=== PATIENT | male | born 1955 | race Caucasian/White ===

== ENCOUNTER 2017-06-24 07:07 | Outpatient (CLI) | payer MEDICARE ==
[~2017-06-24 07:07] MED LIST: AMOXICILLIN500 M1 PO; BUMEX2 MG PO; BUTALB-APAP-CA1 EACH PO; CLEOCIN HCL150 MG PO; COREG25 MG PO; COZAAR50 MG PO; FORTAMET1000 MG/BO PO; GLUCOPHAGE500 MG PO; LASIX20 MG PO; ZITHROMAX500 MG PO
[2017-06-24] MEDS ORDERED: HYDROCODON-ACE1 EAC7 PO (07:41)
[2017-06-24] MEDS ORDERED: TRADJENTA5 MG PO (07:41)
[2017-06-24] MEDS ORDERED: GLUCOTROL 5 MG T5 MG PO (07:41)
[2017-06-24 07:51] VITALS: BP 122/80; BMI 35.2
[2017-06-24 07:52] LABS: ANION GAP 14.4 mmol/L (8-16); CALCIUM 9.5 mg/dL (8.5-10.1); CREATININE - SERUM 1.2 mg/dL (0.6-1.3); POTASSIUM - SERUM 3.6 mmol/L (3.5-5.1)
--- NOTE | 2017-06-24 07:56 | NUR ---
0755 IV HAS BEEN STARTED X 1 STICK WTIH 22 G TO LEFT WRIST, LAB DRAWN. IV BUMEX STARTED AND INFUSING AT 10 ML PER HOUR VIA PUMP. DOBUTAMINE STARTED AND INFUSING AT 18.2 ML/HR VIA PUMP. DIET TRAY ORDERED. AT BEDSIDE. URINALS X 2 PROVIDED. INITIAL TELEMETRY STRIP PRINTED. CALL LIGHT IN REACH.
--- NOTE | 2017-06-24 08:00 | NUR ---
0800 2 GM SODIUM DIET TRAY SERVED. PT DENIES ANY C/O.
[2017-06-24 08:01] LABS: CARBON DIOXIDE 25.2 mmol/L (21.0-32.0)
--- NOTE | 2017-06-24 11:03 | NUR ---
0945 PT LAPHONSO 2 GM SODIUM DIET DIET WITH NO C/O. VOIDED 1300 CC CLEAR YELLOW URINE TO URINAL.
--- NOTE | 2017-06-24 12:45 | NUR ---
2GM NA DIET TRAY GIVEN. FEEDING SELF. DENIES ANY NEEDS AT THIS TIME.
--- NOTE | 2017-06-24 13:30 | NUR ---
VOIDED 1300CC OF CLEAR YELLOW URINE INTO URINAL.
--- NOTE | 2017-06-24 15:45 | NUR ---
INFUSIONS COMPLETE. VSS. WILL CONTINUE TO MONITOR.
--- NOTE | 2017-06-24 16:10 | NUR ---
LEFT HAND PIV D/C'D WITH CATHETER INTACT, BAND AID TO SITE. UP TO BEDSIDE TO GET DRESSED.
--- NOTE | 2017-06-24 16:15 | NUR ---
VOIDED 1400CC OF CLEAR YELLOW URINE.
--- NOTE | 2017-06-24 16:18 | NUR ---
TAKEN OUT VIA WHEELCHAIR BY CATH R AND D LAB TECHNICIAN. LEFT FACILITY WITH FAMILY MEMBER AND ALL PERSONAL BELONGINGS.
--- NOTE | 2017-06-24 16:18 | NUR ---
DISCHARGE WEIGHT 262.0 LBS. VOIDED TOTAL OF 4000CC OF URINE.
== END 2017-06-24 16:18 | disposition home or self-care (01) ==
LOC: D.CATH 07:07
PROVIDERS: Internal Medicine Cardiovascular Disease
DX: I50.9 Heart failure, unspecified (principal); I42.9 Cardiomyopathy, unspecified

== ENCOUNTER 2017-11-12 09:43 | Outpatient (CLI) | payer MEDICARE ==
[~2017-11-12] VITALS: Ht 185.4 cm; Wt 122.2 kg
[~2017-11-12 09:43] MED LIST changes: +GLUCOTROL 5 MG T5 MG PO; +HYDROCODON-ACE1 EAC7 PO; +TRADJENTA5 MG PO
[2017-11-12 10:23] VITALS: BP 134/77; Ht 185.4 cm; Wt 122.2 kg
[2017-11-12 10:52] LABS: ANION GAP 15.8 mmol/L (8-16); CARBON DIOXIDE 29.2 mmol/L (21.0-32.0); CREATININE - SERUM 1.4 mg/dL (0.6-1.3)
== END 2017-11-12 19:00 | disposition home or self-care (01) ==
LOC: D.OPS 09:43 → D.CATH 10:00 → D.OPS 19:00
PROVIDERS: Internal Medicine Interventional Cardiology
DX: I50.9 Heart failure, unspecified (principal); I42.9 Cardiomyopathy, unspecified

== ENCOUNTER 2018-04-09 09:06 | Outpatient (CLI) | payer MEDICARE ==
[~2018-04-09] VITALS: Ht 185.4 cm; Wt 124.3 kg
[2018-04-09 11:27] LABS: BASOPHILS 1.5 % (0-2); EOSINOPHILS 0.6 % (0-7); HEMATOCRIT 43.1 % (42.0-54.0); HEMOGLOBIN 14.1 g/dL (13.5-17.5); LYMPHOCYTES 15.8 % (15-50); MCH 29.2 pg (26.0-34.0); MCHC 32.7 g/dL (31.0-37.0); MCV 89.2 fL (80.0-100.0); MEAN PLATELET VOLUME 11.1 fL (7.4-10.4); MONOCYTES 11.9 % (2-11); NEUTROPHILS 70.2 % (40-80); PLATELET COUNT 118 10x3/uL (130-400); RBC 4.83 10x6/uL (4.20-6.10); RDW 15.2 % (11.5-14.5); WBC 3.4 10x3/uL (4.8-10.8)
[2018-04-09 11:38] LABS: ANION GAP 10.8 mmol/L (8-16); CARBON DIOXIDE 30.9 mmol/L (21.0-32.0); CREATININE - SERUM 1.3 mg/dL (0.6-1.3); POTASSIUM - SERUM 3.7 mmol/L (3.5-5.1)
[2018-04-09 12:46] VITALS: BP 126/79; Ht 185.4 cm; Wt 124.3 kg
[2018-04-09 20:19] VITALS: BP 130/83
== END 2018-04-09 20:45 | disposition home or self-care (01) ==
LOC: D.OPS 09:06 → D.M2 19:32 → D.OPS 20:45
PROVIDERS: Internal Medicine Interventional Cardiology
DX: I50.9 Heart failure, unspecified (principal); I42.9 Cardiomyopathy, unspecified; Z01.812 Encounter for preprocedural laboratory examination

== ENCOUNTER 2018-06-25 09:26 | Outpatient (CLI) | payer MEDICARE ==
[~2018-06-25] VITALS: Ht 185.4 cm; Wt 121.5 kg
[2018-06-25 10:05] LABS: ANION GAP 14.6 mmol/L (8-16); CARBON DIOXIDE 25.3 mmol/L (21.0-32.0); CREATININE - SERUM 1.4 mg/dL (0.6-1.3); POTASSIUM - SERUM 3.9 mmol/L (3.5-5.1)
[2018-06-25 10:52] VITALS: BP 112/64; Ht 185.4 cm; Wt 121.5 kg
== END 2018-06-25 20:00 | disposition home or self-care (01) ==
LOC: D.OPS 09:26
PROVIDERS: Internal Medicine Interventional Cardiology
DX: I50.9 Heart failure, unspecified (principal); I42.9 Cardiomyopathy, unspecified; Z01.812 Encounter for preprocedural laboratory examination

== ENCOUNTER 2018-08-08 07:18 | Outpatient (CLI) | payer MEDICARE ==
[~2018-08-08] VITALS: Ht 185.4 cm; Wt 124.1 kg
[2018-08-08 10:19] VITALS: BP 103/57; Ht 185.4 cm; Wt 124.1 kg
[2018-08-08 12:33] LABS: ALBUMIN 3.9 g/dL (3.4-5.0); ANION GAP 17.5 mmol/L (8-16); BILIRUBIN - TOTAL 2.2 mg/dL (0.2-1.3); CALCIUM 9.3 mg/dL (8.5-10.1); CARBON DIOXIDE 24.3 mmol/L (21.0-32.0); CREATININE - SERUM 1.7 mg/dL (0.6-1.3); MAGNESIUM - SERUM 2.1 mg/dL (1.8-2.4); POTASSIUM - SERUM 3.8 mmol/L (3.5-5.1); PROTEIN - SERUM 7.6 g/dL (6.4-8.2)
== END 2018-08-08 18:25 | disposition home or self-care (01) ==
LOC: D.OPS 07:18
PROVIDERS: Internal Medicine Interventional Cardiology
DX: I50.9 Heart failure, unspecified (principal); I42.9 Cardiomyopathy, unspecified; Z01.812 Encounter for preprocedural laboratory examination

== ENCOUNTER → 2018-08-13 09:20 | Outpatient (CLI) | payer MEDICARE ==
[2018-08-08 10:19] VITALS: BMI 36.1
== END | disposition home or self-care (01) ==
LOC: D.CT 09:20
DX: D35.01 Benign neoplasm of right adrenal gland (principal)

== ENCOUNTER 2018-09-10 07:36 | Outpatient (CLI) | payer MEDICARE ==
[~2018-09-10] VITALS: Ht 185.4 cm; Wt 125.5 kg
[2018-09-10 08:26] VITALS: BP 104/72; Ht 185.4 cm; Wt 125.5 kg
[2018-09-10 08:26] LABS: ANION GAP 15.3 mmol/L (8-16); CARBON DIOXIDE 25.7 mmol/L (21.0-32.0); CREATININE - SERUM 1.5 mg/dL (0.6-1.3)
--- NOTE | 2018-09-10 11:18 | NUR ---
PT RESTING COMFORTABLY AT THIS TIME, PLAN OF CARE EXPLAINED, PT VERBALIZED UNDERSTANDING, NO ACUTE DISTRESS NOTED, WILL CONTINUE TO MONITOR.
--- NOTE | 2018-09-10 14:00 | NUR ---
ASSUMED CARE OF PATIENT. SITTING ON SIDE OF BED. DENIES NEEDS. RELATES THEY ARE SUPPOSE TO BE GETTING ME SOMETHING TO EAT. CHECKED AND PT HAD A HAMURGER ON FOOD CART. BROUGHT TO PATIENT BUT DID NOT HAVE SET UP FOR BURGER. NUTRITION CALLED AND ORDERED SET FOR MEAL.
--- NOTE | 2018-09-10 14:30 | NUR ---
SET UP FOR NORMA BROUGHT UP BY DIETARY. TAKEN TO PT. NO C/O VOICED.
--- NOTE | 2018-09-10 14:38 | NUR ---
REPORTED OFF TO Nickolas WEAVER RN.
--- NOTE | 2018-09-10 17:58 | NUR ---
WEIGHT PRIOR TO INFUSION 273 POST WEIGHT 269.4
== END 2018-09-10 17:45 | disposition home or self-care (01) ==
LOC: D.OPS 07:36
PROVIDERS: Internal Medicine Interventional Cardiology
DX: I50.9 Heart failure, unspecified (principal); Z01.812 Encounter for preprocedural laboratory examination

== ENCOUNTER → 2018-09-15 12:06 | Outpatient (CLI) | payer MEDICARE ==
[2018-09-10 08:26] VITALS: BMI 36.4
== END | disposition home or self-care (01) ==
LOC: D.RAD 12:06
DX: R07.9 Chest pain, unspecified (principal)